=== PATIENT | female | born 1955 | race Caucasian/White ===

== ENCOUNTER → 2017-12-08 | Outpatient (CLI) | payer BC ==
[~2017-12-08] MED LIST: ACET-3017 PO; ASCO-191 PO; CALC-635; CEPH500T7 PO; CINN500C12 PO; CLOB15OI16 TP; CRAN500C11 PO; CYCL10TA29 PO; DULO60CA56 PO; ERGO2000 PO; FLAX100053 PO; FLU60SYR30 IM ONLY; GARL10005 PO; GLUC1TAB25 PO; HYDR-2966 PO; HYDR-4308 PO; HYDR-4309 PO; LEVO25TA57 PO; LEVO50TA86 PO; LISI5TAB25 PO; MAGN200T6 PO; MELA1TAB27 PO; METF-410 PO; METO25TA93 PO; NIAC500T85 PO; OMEG-11 PO; OMEP-125 PO; TRAM-420 PO; TRIA15CR40 TP; UBID200C21 PO; VITA-200 PO; [UNRECOGNIZED DRUG - CODE] PO
[2017-12-08 15:07] LABS: PLATELET COUNT, AUTOMATED 203 K/uL (150-450)
== END ==
LOC: LAB 14:40
PROVIDERS: ATTEND Internal Medicine
DX: I10 Essential (primary) hypertension (principal); E11.65 Type 2 diabetes mellitus with hyperglycemia; E03.9 Hypothyroidism, unspecified
CPT/HCPCS: 36415; 82040; 82247; 82310; 82374; 82435; 82465; 82565; 82947; 83036; 83718; 84075; 84132; 84155; 84295; 84443; 84450; 84460; 84478; 84520; 85025

== ENCOUNTER → 2018-08-22 | Outpatient (CLI) | payer BC ==
[~2018-08-22] MED LIST changes: +FLU60SYR36 IM; -HYDR-4308 PO; -HYDR-4309 PO; +HYDR-653 PO; +HYDR-654 PO; -METF-410 PO; +METF-450 PO
[2018-08-22 15:23] LABS: PLATELET COUNT, AUTOMATED 225 K/uL (150-450)
[2018-08-22 15:43] LABS: LDL CHOLESTEROL 101 mg/dl
== END ==
LOC: LAB 14:58
PROVIDERS: ATTEND Internal Medicine
DX: E03.9 Hypothyroidism, unspecified (principal); I10 Essential (primary) hypertension; E11.65 Type 2 diabetes mellitus with hyperglycemia
CPT/HCPCS: 36415; 82040; 82247; 82310; 82374; 82435; 82465; 82565; 82947; 83036; 83718; 84075; 84132; 84155; 84295; 84443; 84450; 84460; 84478; 84520; 85025

== ENCOUNTER → 2018-12-22 | Outpatient (CLI) | payer BC ==
[~2018-12-22] MED LIST changes: +ATOR20TA65 PO; +DULA0.75 SQ; +LEVO75TA73 PO
== END ==
LOC: LAB 13:23
PROVIDERS: ATTEND Emergency Medicine
DX: E11.65 Type 2 diabetes mellitus with hyperglycemia (principal); I10 Essential (primary) hypertension
CPT/HCPCS: 36415; 82607; 83036